=== PATIENT | female | born 1935 | race Hispanic/Latino ===

== ENCOUNTER 2017-12-15 16:19 | Emergency (ER) | payer MEDICARE ==
[2017-12-15] MEDS ORDERED: LIDOCAINE HCL 1% 20 ML VIAL ONE (17:55)
[2017-12-15] MEDS ORDERED: BUPIVACAINE/PF 0.5% 30ML VIAL ONE (17:55)
== END 2017-12-15 19:51 | disposition home or self-care (01) ==
LOC: EDH 16:19
DX: S52.532A Colles' fracture of left radius, initial encounter for closed fracture (principal); S62.521A Displaced fracture of distal phalanx of right thumb, initial encounter for closed fracture; E11.9 Type 2 diabetes mellitus without complications; I10 Essential (primary) hypertension; E78.5 Hyperlipidemia, unspecified; M19.90 Unspecified osteoarthritis, unspecified site; W10.8XXA Fall (on) (from) other stairs and steps, initial encounter; Y93.89 Activity, other specified; Y92.89 Other specified places as the place of occurrence of the external cause; Y99.8 Other external cause status
CPT/HCPCS: 25605; 29125; 73100; 73110; 73130; 99284; J3490

== ENCOUNTER 2019-08-13 12:00 | Inpatient (IN) | payer MEDICARE ==
[~2019-08-13] VITALS: Ht 147.3 cm; Wt 61.4 kg
[2019-08-13 12:20] LABS: BASOPHILS % (AUTO) 0.9 % (0.0-5.0); HEMATOCRIT 35.3 % (36-48); LYMPHOCYTES % (AUTO) 37.9 % (21.0-51.0); MEAN CORPUSCULAR HEMOGLOBIN 31.8 pg (27.0-33.0); MEAN CORPUSCULAR HGB CONC 33.1 g/dL (32.0-36.0); MEAN CORPUSCULAR VOLUME 95.9 fL (79-99); MONOCYTES % (AUTO) 8.1 % (3.0-13.0); NEUTROPHILS % (AUTO) 49.2 % (40.0-77.0); PLATELET COUNT (AUTO) 207 K/uL (130-400); RED BLOOD CELL COUNT(AUTO) 3.68 MIL/uL (4.00-5.50); RED CELL DISTRIBUTION WIDTH 12.3 % (11.0-15.5); WHITE BLOOD COUNT (AUTO) 6.4 K/uL (4.8-10.8)
[2019-08-13 12:31] LABS: CREATININE 0.7 mg/dL (0.5-1.5); POTASSIUM 5.3 mmol/L (3.5-5.1)
[2019-08-13 12:33] LABS: INR 0.93 (0.85-1.15); PARTIAL THROMBOPLASTIN TIME 25.7 SEC (26.3-35.5); PROTHROMBIN TIME 10.1 SEC (9.6-11.6)
[2019-08-13 12:50] LABS: APPEARANCE,URINE Clear (CLEAR); BILIRUBIN,URINE Negative (NEGATIVE); COLOR,URINE Yellow (YELLOW); GLUCOSE, URINE (UA) Negative (NEGATIVE); KETONES,URINE Negative (NEGATIVE); LEUKOCYTE ESTERASE ,URINE Trace (NEGATIVE); NITRATE,URINE Negative (NEGATIVE); OCCULT BLOOD,URINE Negative (NEGATIVE); PH,URINE 5.5 (5.0-8.0); PROTEIN,URINE Negative (NEGATIVE); UROBILINOGEN,URINE 0.2 mg/dL (0.2-1.0)
[2019-08-13 13:37] LABS: BACTERIA,URINE None Seen /HPF (None Seen); RBC,URINE 0-1 /HPF (0-1); SQUAMOUS EPITHELIAL CELL,UR 0-2 /HPF (0-2); WBC,URINE 0-1 /HPF (0-1)
[2019-08-18 09:18] VITALS: BP 145/74
[2019-08-18] MEDS ORDERED: MELO-106 PO (10:36)
[2019-08-18] MEDS ORDERED: AMLO10TA7 PO (10:36)
[2019-08-18] MEDS ORDERED: METF-444 PO (10:36)
[2019-08-18] MEDS ORDERED: ASPI-556 PO (10:36)
[2019-08-18] MEDS ORDERED: GEMF600T5 PO (10:36)
--- NOTE | 2019-08-18 13:41 | NUR ---
labs abnormal k+ 5.[address] cotton . further orders given and carried out
[2019-08-19] VITALS (23 sets, daily range): BP systolic 104–148; BP diastolic 34–73
[2019-08-19] MEDS: CEFAZOLIN SODIUM 1 GM VIAL IVP SCH ×3 (06:00→19:09)
[2019-08-19] MEDS ORDERED: SODIUM CHLORIDE 0.9% 1000ML 1,000 ML IV ONE (07:39)
[2019-08-19] MEDS ORDERED: AMLO-96 PO (07:59)
[2019-08-19] MEDS ORDERED: TRANEXAMIC ACID 1000MG/10ML ONE ×2 (08:23→12:23)
[2019-08-19] MEDS ORDERED: CEFAZOLIN SODIUM 1 GM VIAL ONE (08:23)
[2019-08-19] MEDS ORDERED: ONDANSETRON HCL 4 MG/2 ML VIAL ONE (09:40)
[2019-08-19] MEDS ORDERED: DEXAMETHASONE SOD PHOSPHATE 10MG/ML 1ML VIAL ONE (09:40)
[2019-08-19] MEDS ORDERED: LIDOCAINE PF 2% 5ML ABBOJECT ONE (09:40)
[2019-08-19] MEDS ORDERED: FENTANYL CITRATE PF 50 MCG/1 ML 2ML VIAL ONE ×2 (09:41→11:03)
[2019-08-19] MEDS ORDERED: PROPOFOL 10 MG/ML 20ML VIAL IV ONE (09:41)
[2019-08-19] MEDS ORDERED: MIDAZOLAM HCL 1 MG/ML 2ML VIAL ONE (09:41)
[2019-08-19] MEDS ORDERED: EPHEDRINE SULFATE 50 MG/ML AMPULE ONE (09:56)
[2019-08-19] MEDS ORDERED: CEFAZOLIN SODIUM 1 GM VIAL IRRIG ONE (10:31)
[2019-08-19] MEDS ORDERED: ROCURONIUM 10MG/1ML SYR 10 MG/ML ML ONE (10:31)
[2019-08-19] MEDS: INSULIN HUMULIN R 100 UNIT/ML 3ML SQ SCH ×3 (11:30→21:40)
[2019-08-19] MEDS ORDERED: TRAMADOL HCL 50 MG TABLET PO PRN (11:30)
[2019-08-19] MEDS ORDERED: ONDANSETRON HCL 4 MG/2 ML VIAL IVP PRN (11:30)
[2019-08-19] MEDS ORDERED: LIDOCAINE HCL-MPF 1% 2ML VIAL IV PRN (11:30)
[2019-08-19] MEDS ORDERED: DiphenhydrAMINE HCL 50 MG/ML VIAL IVP PRN (11:30)
[2019-08-19] MEDS ORDERED: FERROUS FUMARATE 324 MG TABLET PO PRN (11:30)
[2019-08-19] MEDS ORDERED: POTASSIUM CHLORIDE 20MEQ/100ML 100 ML IV PRN (11:30)
[2019-08-19] MEDS ORDERED: TEMAZEPAM 15 MG CAPSULE PO PRN (11:30)
[2019-08-19] MEDS ORDERED: OXYCODONE HCL 5 MG TAB PO PRN (11:30)
[2019-08-19] MEDS ORDERED: POTASSIUM CHLORIDE 20 MEQ ERTAB PO PRN (11:30)
[2019-08-19] MEDS: ACETAMINOPHEN EXTRA STRENGTH 500 MG TABLET PO SCH ×2 (11:30→19:10)
[2019-08-19] MEDS ORDERED: POTASSIUM CHLORIDE 10% ELIXIR 20 MEQ/15 ML UDCUP PO PRN (11:30)
[2019-08-19] MEDS ORDERED: KETOROLAC TROMETHAMINE 15MG/ML IV PRN (11:30)
[2019-08-19] MEDS: SODIUM CHLORIDE 0.9% 1000ML 1,000 ML IV SCH ×2 (11:30→21:51)
[2019-08-19] MEDS ORDERED: GLYCOPYRROLATE 1 MG/5 ML SYRINGE ONE (11:57)
[2019-08-19] MEDS ORDERED: MEPERIDINE-PF 25 MG/ML SYG ONE (12:59)
--- NOTE | 2019-08-19 13:20 | NUR ---
PROCEDURE REPORT RECEIVED FROM ARRON RN (PACU). PATIENT S/P LEFT TKA BY DR. XIE UNDER GENERAL ANESTHESIA. BA DRESSING IN PLACE. NO DRAINS. SDC'S APPLIED. PATIENT STABLE AT THIS TIME.
[2019-08-19] MEDS: ASPIRIN 81MG TAB.CHEW PO SCH (20:16)
[2019-08-19] MEDS: FAMOTIDINE 20MG TAB 20 MG TAB PO SCH (20:16)
[2019-08-19] MEDS: CELECOXIB 200 MG CAP PO SCH (20:17)
[2019-08-19] MEDS: OXYCODONE HCL 5 MG TAB PO PRN (20:20)
[2019-08-19] MEDS ORDERED: HYDROMORPHONE 1 MG/1 ML AMP ONE (21:53)
--- NOTE | 2019-08-19 23:00 | NUR ---
ACTIVITY PATIENT ASSISTED TO EDGE OF BED TO DANGLE LEGS PER PROTOCOL. PATIENT TOLERATED WELL AND ASSISTED BACK TO BED.
[2019-08-19] MEDS: HYDROMORPHONE 1 MG/1 ML AMP IVP PRN (23:54)
[2019-08-20 00:12] VITALS: BP 133/58
[2019-08-20] MEDS: OXYCODONE HCL 5 MG TAB PO PRN ×3 (00:30→13:43)
[2019-08-20] MEDS: HYDROMORPHONE 1 MG/1 ML AMP IVP PRN ×4 (01:20→05:31)
[2019-08-20] MEDS: CEFAZOLIN SODIUM 1 GM VIAL IVP SCH (01:20)
[2019-08-20] MEDS: ACETAMINOPHEN EXTRA STRENGTH 500 MG TABLET PO SCH ×3 (03:30→20:42)
[2019-08-20 04:12] VITALS: BP 151/64
[2019-08-20 05:19] LABS: HEMATOCRIT 27.4 % (36-48); MEAN CORPUSCULAR HEMOGLOBIN 31.7 pg (27.0-33.0); MEAN CORPUSCULAR HGB CONC 33.6 g/dL (32.0-36.0); MEAN CORPUSCULAR VOLUME 94.5 fL (79-99); RED BLOOD CELL COUNT(AUTO) 2.9 MIL/uL (4.00-5.50); RED CELL DISTRIBUTION WIDTH 12.6 % (11.0-15.5); WHITE BLOOD COUNT (AUTO) 11.5 K/uL (4.8-10.8)
[2019-08-20 05:41] LABS: CREATININE 0.8 mg/dL (0.5-1.5); POTASSIUM 4.3 mmol/L (3.5-5.1)
[2019-08-20] MEDS: SODIUM CHLORIDE 0.9% 1000ML 1,000 ML IV SCH (06:03)
[2019-08-20] MEDS: INSULIN HUMULIN R 100 UNIT/ML 3ML SQ SCH ×4 (06:03→20:47)
[2019-08-20] MEDS: CALCIUM CARBONATE 500 MG TABLET PO PRN ×2 (08:38→20:42)
[2019-08-20] MEDS: FAMOTIDINE 20MG TAB 20 MG TAB PO SCH ×2 (08:38→20:43)
[2019-08-20] MEDS: POLYETHYLENE GLYCOL 3350 17 GM POWD.PACK PO SCH (08:38)
[2019-08-20] MEDS: METFORMIN HCL 500 MG TABLET PO SCH (08:39)
[2019-08-20] MEDS: GEMFIBROZIL 600 MG TABLET PO SCH (08:39)
[2019-08-20] MEDS: CELECOXIB 200 MG CAP PO SCH ×2 (08:39→20:52)
[2019-08-20] MEDS: ASPIRIN 81MG TAB.CHEW PO SCH ×2 (08:39→20:42)
[2019-08-20 09:09] VITALS: BP 143/51
--- NOTE | 2019-08-20 09:29 | NUR ---
DCP CM met with pt and daughter discussed dc plans. Pt is semi-independent prior to admission, lives at home alone, daughter lives close by. Pt has a cane and shower chair, provider 4hrs on Mon and 3hrs Sat-Sat. Feels safe to go back home, daughter able to assist with transportation and needs, daughter verbalized she will be staying with patient temporarily. Agreeable for home w/HH and DME, [place] signed for [employer] [facility]. DC plan to home w/HH and DME. CM to cont to follow up. Faxed order to [employer] [facility] for standard walker no wheels and 3 in 1 chair, confirmation received. Spoke to Ela yap/[employer], will wait for clinicals and check benefits. Pt pending approval at this time. Primary nurse aware. CM to cont to follow up. Spoke to Colten Kenney made aware of request. Will wait for order and clinicals and work on DME. Pt pending approval and delivery. Primary nurse aware. CM to cont to follow up. Addendum: 08/20/19 at 0935 by SHERWIN LR LVN CM Amended: Links added.
[2019-08-20 11:46] VITALS: BP 140/47
--- NOTE | 2019-08-20 12:00 | NUR ---
CM Note: [facility] approval CM spoke to Art w/[facility]. pt has approval for standard walker no wheels and 3 in 1 chair, pending delivery to pt's room. Primary nurse aware. CM to cont to follow up.
--- NOTE | 2019-08-20 13:08 | NUR ---
BETO Note: [employer] CM spoke to Marlen yap/[employer], pt has approval, pt safe to dc via private car once MD clear. Primary nurse aware. CM to cont to follow up.
--- NOTE | 2019-08-20 13:12 | NUR ---
CM Note: [facility] delivered CM verified standard walker no wheels delivered in pt's room, pt has a copay for 3 in 1 chair, family verbalized will not be neededing 3 in 1 chair, requested to cancel DME. Primary nurse aware. CM to cont to follow up.
--- NOTE | 2019-08-20 16:34 | NUR ---
[id number] patient's sister signed IM Letter, I faxed IM Letter to [id number] and placed in chart under consent tab
[2019-08-20 17:02] VITALS: BP 136/38
[2019-08-20 20:00] VITALS: BP 133/47
--- NOTE | 2019-08-20 20:00 | NUR ---
ASSESSMENT NOTE PATIENT AWAKE,ALERT, OX3, NO SOB, NO C/O PAIN , ENCOURAGE DEEP BREATHING EXERCISES, REINFORCE IS PREVIOUSLY TAUGHT, LEFT KNEE WITH BA DRESSING NEGATIVE PRESSURE, TEACH PATIENT AND DAUGHTER PLAN OF CARE AND EXPECTED OUTCOME, Patient verbalizes understanding via teach back
[2019-08-20] MEDS ORDERED: CELECOXIB 100 MG CAP ONE (20:50)
[2019-08-21 00:06] VITALS: BP 152/45
[2019-08-21] MEDS: ACETAMINOPHEN EXTRA STRENGTH 500 MG TABLET PO SCH ×2 (03:06→11:29)
[2019-08-21 03:32] VITALS: BP_SYST 146
[2019-08-21] MEDS: INSULIN HUMULIN R 100 UNIT/ML 3ML SQ SCH ×3 (06:12→16:30)
[2019-08-21 08:07] VITALS: BP 148/73
[2019-08-21] MEDS: POLYETHYLENE GLYCOL 3350 17 GM POWD.PACK PO SCH (08:49)
[2019-08-21] MEDS: FAMOTIDINE 20MG TAB 20 MG TAB PO SCH (08:49)
[2019-08-21] MEDS: ASPIRIN 81MG TAB.CHEW PO SCH (08:49)
[2019-08-21] MEDS: CELECOXIB 200 MG CAP PO SCH (08:49)
[2019-08-21] MEDS: GEMFIBROZIL 600 MG TABLET PO SCH (08:49)
[2019-08-21] MEDS: METFORMIN HCL 500 MG TABLET PO SCH (08:49)
[2019-08-21 11:31] VITALS: BP 137/52
[2019-08-21] MEDS ORDERED: TRAM1TAB PO (16:26)
[2019-08-21] MEDS ORDERED: ASPI-556 PO (16:26)
[2019-08-21 16:50] VITALS: BP 139/48
--- NOTE | 2019-08-21 18:08 | NUR ---
INSTRUCTIONS DISCHARGE INSTRUCTIONS GIVEN TO PATIENT AND DAUGHTER USING TEACH BACK. IV REMOVED WITH TIP INTACT. DIRECT PRESSURE APPLIED UNTIL BLEEDING CONTROLLED THEN SITE COVERED WITH GAUZE AND SECURED WITH A BAND-AID. BA DRESSING REMOVED, NOTED WELL APPROXIMATED INCISION WITH MINIMAL SEROSANGUINEOUS DRAINAGE COMING FROM SITE. NO SIGNS OF INFECTION NOTED. NEW BA DRESSING APPLIED. PATIENT TOLERATED PROCEDURE WELL. F/U APPOINTMENT MADE. NEW PRESCRIPTIONS ELECTRONICALLY SENT TO PATIENT'S PREFERRED PHARMACY. REPORT TO ISAAC DAUGHERTY AT [facility] WHO WILL VISIT THE PATIENT TOMORROW AT HER RESIDENCE. NO QUESTIONS OR CONCERNS VOICED. PENDING RIDE HOME.
[2019-08-22] MEDS ORDERED: BISACODYL 10 MG SUPP.RECT RC PRN (11:30)
== END 2019-08-21 18:45 | disposition home health service (06) | DRG 470 ==
LOC: DAHIP 08-19 06:17 → 3DH 08-19 13:00
PROVIDERS: ADMIT Orthopaedic Surgery; ATTEND Orthopaedic Surgery
PROC: 0SRD0J9 Replacement of Left Knee Joint with Synthetic Substitute, Cemented, Open Approach (ICD-10-PCS; principal; 2019-08-19 09:36)
DX: M17.12 Unilateral primary osteoarthritis, left knee (principal); I10 Essential (primary) hypertension; E78.5 Hyperlipidemia, unspecified; E11.9 Type 2 diabetes mellitus without complications; R26.89 Other abnormalities of gait and mobility; M23.8X2 Other internal derangements of left knee; G89.29 Other chronic pain; Z20.828 Contact with and (suspected) exposure to other viral communicable diseases; Z82.49 Family history of ischemic heart disease and other diseases of the circulatory system; Z79.899 Other long term (current) drug therapy; Z83.3 Family history of diabetes mellitus; Z83.49 Family history of other endocrine, nutritional and metabolic diseases
CPT/HCPCS: 36415; 71045; 80048; 81001; 82948; 84132; 85025; 85027; 85610; 85730; 87641; 88305; 88311; 97039; G0378; J0690; J1100; J1170; J1815; J2001; J2175; J2250; J2405; J2704; J3010; J3490; J7030; U0003